=== PATIENT | female | born 1965 | race Caucasian/White ===

== ENCOUNTER → 2021-07-07 14:57 | Outpatient (CLI) | payer BC, SELFPAY ==
--- NOTE | ~2021-07-07 | MR_ITS ---
EXAMINATION: MR hip RT wo con DATE: 07/07/2021 16:22 INDICATION: Right hip pain TECHNIQUE: Magnetic resonance imaging (MRI) of the right hip was performed without intravenous contr ast. Sequences included full-field axial PD-weighted FS FSE and T1-weighted FSE, coronal of the pelvi s with PD-weighted FS FSE, T2-weighted FSE and T1-weighted FSE, small field of view of the right hip with axial PD-weighted FS FSE, sagittal PD-weighted FS FSE, coronal PD-weighted FS FSE and coronal T2 weighted FSE. Additional radial T1-weighted FGR oriented orthogonal to the acetabular rim were obt ained for evaluation of the labrum. COMPARISON: None FINDINGS: Bones/labrum/cartilage: Mild lumbar levocurvature with mild spondylosis. No fracture, avascular necrosis or pathologic marro w replacing process. Mild osteoarthritis at the right hip with partial thickness cartilage loss and n onuniform joint space narrowing. There is deeper chondral fissuring with mild underlying subarticular edema at the anterosuperior left acetabulum. There is a linear labral tear at the anterior labrum wi th small para labral cyst extending approximately 2.3 cm cephalad deep to the iliopsoas muscle along the anterior margin of the right acetabulum and measuring up to 6 x 8 mm in maximal orthogonal dimens ions. Amorphous diffuse increased signal in the anterosuperior to posterior superior right acetabular labrum consistent with labral degeneration. Fluid: Symmetric physiologic amount of fluid within both hip joints. No bursitis or other abnormal fluid col lections. Soft tissues: Normal and symmetric muscle bulk and signal in the pelvis and visualized proximal thighs. The iliopso as, gluteal and proximal hamstring tendons are normal. Marked diverticulosis throughout the colon wit hout adjacent from 3 change to suggest diverticular colitis. There appears to be a diverticulum along the otherwise normal-appearing appendix. The uterus is not identified and has likely been surgically resected. No pathologically enlarged pelvic/inguinal lymphadenopathy. IMPRESSION: 1. 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 2. Anterior right labral tear with associated para labral cyst and less well-defined degeneration of the anterosuperior to posterior superior labrum. 3. Extensive diverticulosis including along the appendix. Reviewed, dictated and finalized at location A. IMPRESSION: 1. 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 2. Anterior right labral tear with associated para labral cyst and less well-de fined degeneration of the anterosuperior to posterior superior labrum. 3. Extensive diverticulosis including along the appendix.
== END ==
PROVIDERS: PCP Physician Assistant
DX: M16.11 Unilateral primary osteoarthritis, right hip (principal); K57.30 Diverticulosis of large intestine without perforation or abscess without bleeding
CPT/HCPCS: 73721